=== PATIENT | male | born 1985 | race Caucasian/White ===

== ENCOUNTER 2023-12-08 00:03 | Emergency (ER) | payer OTHER ==
[~2023-12-08] VITALS: Ht 170.2 cm; Wt 83.9 kg
[2023-12-08] MEDS: BACITRACIN ZINC OINT 15 GM TUBE TOP STA (01:30)
[2023-12-08] MEDS ORDERED: NEOMY/BACITRA/POLYMYXIN B OINT UD PACKET TP ONE (01:30)
[2023-12-08 01:40] VITALS: BP 111/73; TEMP 208.4; O2SAT 99
== END 2023-12-08 01:41 | disposition home or self-care (01) ==
LOC: ER 00:09
DX: T23.001A Burn of unspecified degree of right hand, unspecified site, initial encounter (principal); Y92.89 Other specified places as the place of occurrence of the external cause
CPT/HCPCS: A4606; A4663